=== PATIENT | male | born 1940 | race Caucasian/White ===

== ENCOUNTER 2018-07-19 10:44 | Inpatient (IN) | payer SELFPAY ==
[~2018-07-19] VITALS: Ht 188 cm; Wt 84.7 kg
--- NOTE | 2018-07-19 11:03 | NUR ---
BIB EMS FROM [facility]. WITNESS +SYNCOPAL EPISODE THIS MORNING. PT WAS CAUGHT BY STAFF AND LOWERED TO FLOOR. PARTS EXPEDITER RPTS PALPATED RADIAL PULSE OF 29 IMPROVED TO HIGH 60'S PT WAS UNARROUSABLE INITIALLY BUT BECAME MORE RESPONSIVE AFTER A "FEW MINUTES" PT NOW PRESENTS AT BASELINE PER STAFF AT BEDSIDE. HX: DEMENTIA. PT IN CUSTODY WITH OFFICERS AT BEDSIDE X 2. PT IS CALM AND COOPERATIVE. MONITORS PLACED AND EKG COMPLETED. ORTHO STATICS COMPLETED BY EMS SUPINE 90 105/70, STANDING 84, 98/59
--- NOTE | 2018-07-19 11:07 | NUR ---
DR LARES AT BEDSIDE, SBAR RPT PROVIDED. ASSESSMENT REVIEWED AND QUESTIONS ANSWERED.
[2018-07-19] MEDS ORDERED: SODIUM CHLORIDE FLUSH 10ML SYR IVF ONE (11:30)
[2018-07-19 11:40] LABS: BASOPHILS # (AUTO) 0.02 x10^3/uL (0-0.1); BASOPHILS % (AUTO) 0 % (0-1); EOSINOPHILS # (AUTO) 0.02 x10^3/uL (0-0.4); EOSINOPHILS % (AUTO) 0 % (1-7); LYMPHOCYTES # (AUTO) 0.73 x10^3/uL (1-3.4); LYMPHOCYTES % (AUTO) 18 % (22-44); MD NO; MEAN CORPUSCULAR HEMOGLOBIN 30.5 pg (27.5-34.5); MEAN CORPUSCULAR HGB CONC 32.3 g/dL (33.2-36.2); MEAN CORPUSCULAR VOLUME 94.5 fL (81-97); MEAN PLATELET VOLUME 7.3 fL (7.4-10.4); MONOCYTES # (AUTO) 0.36 x10^3/uL (0.2-0.8); MONOCYTES % (AUTO) 9 % (2-9); NEUTROPHILS # (AUTO) 3.02 x10^3/uL (1.8-6.8); NEUTROPHILS % (AUTO) 73 % (42-75); PLATELET COUNT 277 x10^3/uL (130-400); RED CELL DISTRIBUTION WIDTH 17.1 % (9.4-14.8)
[2018-07-19 11:51] LABS: INTERNATIONAL NORMALIZED RATIO 1.07 (0.93-1.1); PROTHROMBIN TIME 11.2 Seconds (9.6-11.5)
[2018-07-19 11:57] LABS: ALBUMIN 3.2 g/dL (3.4-5.0); ANION GAP 6 mmol/L (5-15); CALCIUM 8.7 mg/dL (8.5-10.1); CHLORIDE 105 mmol/L (98-107)
[2018-07-19 12:03] LABS: ALANINE AMINOTRANSFERASE 25 U/L (12-78); ALKALINE PHOSPHATASE 87 U/L (45-117); BILIRUBIN,TOTAL 0.4 mg/dL (0.2-1.0); CREATININE 1.03 mg/dL (0.7-1.3); TOTAL PROTEIN 6.8 g/dL (6.4-8.2); TROPONIN I < 0.015 ng/mL (0.000-0.045)
[2018-07-19] MEDS ORDERED: CHLO10TA2 PO ×2 (12:08→12:10)
[2018-07-19] MEDS ORDERED: ASPI-647 PO (12:08)
[2018-07-19] MEDS ORDERED: CHLO50TA6 PO (12:09)
[2018-07-19] MEDS ORDERED: POLY17PO5 PO (12:09)
[2018-07-19] MEDS ORDERED: TAMS-11 PO (12:09)
[2018-07-19] MEDS ORDERED: LOSA50TA14 PO (12:09)
--- NOTE | 2018-07-19 12:28 | NUR ---
BEDSIDE REPORT FROM GABO VICTORIA. ASSUMED CARE OF PATIENT AT THIS TIME.
--- NOTE | 2018-07-19 13:04 | NUR ---
PATIENT ASSISTED TO BATHROOM WITH STEADY GAIT TO BATHROOM BY [facility] STAFF, PATIENT BACK TO BED.
[2018-07-19] MEDS ORDERED: OMNIPAQUE 350 MG/ML, 100ML BOTTLE ONE (13:05)
--- NOTE | 2018-07-19 13:08 | NUR ---
ADMIT ORDER IN, AWAITING BED ASSIGNMENT. [facility] STAFF AT BEDSIDE.
--- NOTE | 2018-07-19 13:10 | NUR ---
VS UPDATED IN CHART, ADMIT MD AT BEDSIDE.
[2018-07-19] MEDS ORDERED: ONDANSETRON 2MG/ML, 2ML IVPush PRN (13:30)
[2018-07-19] MEDS ORDERED: HALOPERIDOL 1 MG TABLET PO PRN (13:30)
[2018-07-19] MEDS ORDERED: HALOPERIDOL 5 MG/ML IVPush PRN (13:30)
[2018-07-19] MEDS ORDERED: hydrALAzine 20 MG/ML, 1ML IVPush PRN (13:30)
[2018-07-19] MEDS ORDERED: ACETAMINOPHEN 325 MG TABLET PO PRN (13:30)
[2018-07-19] MEDS ORDERED: KETOROLAC 60 MG/2 ML IV PRN (13:30)
[2018-07-19] MEDS ORDERED: NITROGLYCERIN 0.4 MG BOTTLE (25 TABS) SL PRN (13:30)
[2018-07-19] MEDS ORDERED: NITROGLYCERIN 0.4 MG/SPRAY SL PRN (13:30)
--- NOTE | 2018-07-19 14:50 | NUR ---
REPORT TO GABO GASPAR.
--- NOTE | 2018-07-19 15:01 | NUR ---
PATIENT TRANSFERRED/ADMITTED TO HOSP BED UPSTAIRS, NEW ORDERS FOR ABX. REPORT TO GABO GASPAR TO CHECK WITH [facility] REGARDING NEED FOR BLOOD CULTURES PRIOR TO ABX ADMINISTRATION. HUBERT TO FOLLOW UP.
[2018-07-19] MEDS: ENOXAPARIN 40 MG/0.4 ML SQ SCH (16:00)
[2018-07-19] MEDS: CEFTRIAXONE PMX 1GM/50ML 50 ML IV SCH (16:00)
[2018-07-19 16:02] VITALS: BP 151/83
[2018-07-19] MEDS: AZITHROMYCIN 500 MG in SODIUM CHLORIDE 0.9% 250 ML IV SCH (17:30)
[2018-07-19 19:01] LABS: TROPONIN I < 0.015 ng/mL (0.000-0.045)
[2018-07-19 20:00] VITALS: BP 116/59
[2018-07-20 01:00] VITALS: BP 141/59
[2018-07-20 01:13] LABS: TROPONIN I < 0.015 ng/mL (0.000-0.045)
[2018-07-20] MEDS: ASPIRIN 325 MG TABLET EC PO SCH (05:42)
[2018-07-20 05:45] LABS: BASOPHILS # (AUTO) 0.02 x10^3/uL (0-0.1); BASOPHILS % (AUTO) 0 % (0-1); EOSINOPHILS # (AUTO) 0.03 x10^3/uL (0-0.4); EOSINOPHILS % (AUTO) 1 % (1-7); LYMPHOCYTES # (AUTO) 1.31 x10^3/uL (1-3.4); LYMPHOCYTES % (AUTO) 25 % (22-44); MD NO; MEAN CORPUSCULAR HGB CONC 32.4 g/dL (33.2-36.2); MEAN CORPUSCULAR VOLUME 92.8 fL (81-97); MEAN PLATELET VOLUME 7.1 fL (7.4-10.4); MONOCYTES # (AUTO) 0.46 x10^3/uL (0.2-0.8); MONOCYTES % (AUTO) 9 % (2-9); NEUTROPHILS % (AUTO) 65 % (42-75); PLATELET COUNT 278 x10^3/uL (130-400); RED BLOOD COUNT 3.98 x10^6/uL (4.38-5.82); RED CELL DISTRIBUTION WIDTH 17.9 % (9.4-14.8)
[2018-07-20 05:53] LABS: ANION GAP 4 mmol/L (5-15); CALCIUM 8.9 mg/dL (8.5-10.1); CHLORIDE 107 mmol/L (98-107); CREATININE 0.97 mg/dL (0.7-1.3)
[2018-07-20 06:03] LABS: THYROID STIMULATING HORMONE 0.713 mIU/L (0.358-3.740)
[2018-07-20 08:12] VITALS: BP 131/58
[2018-07-20] MEDS: POLYETHYLENE GLYCOL 17 GM PACKET PO SCH (09:00)
[2018-07-20] MEDS: LOSARTAN 50MG TABLET PO SCH (10:28)
[2018-07-20] MEDS: TAMSULOSIN 0.4 MG CAP.ER.24H PO SCH (10:28)
[2018-07-20] MEDS: chlorPROMAZINE 10MG TABLET PO SCH ×2 (10:28→14:06)
[2018-07-20 15:11] VITALS: BP 133/65
[2018-07-20] MEDS: ENOXAPARIN 40 MG/0.4 ML SQ SCH (16:32)
[2018-07-20] MEDS: CEFTRIAXONE PMX 1GM/50ML 50 ML IV SCH (16:33)
[2018-07-20] MEDS: AZITHROMYCIN 500 MG in SODIUM CHLORIDE 0.9% 250 ML IV SCH (17:41)
[2018-07-20 19:43] VITALS: BP 142/72
[2018-07-21 02:24] VITALS: BP 135/78
[2018-07-21] MEDS: ASPIRIN 325 MG TABLET EC PO SCH (05:56)
[2018-07-21 07:11] VITALS: BP 155/82
[2018-07-21] MEDS: POLYETHYLENE GLYCOL 17 GM PACKET PO SCH (08:42)
[2018-07-21] MEDS: chlorPROMAZINE 10MG TABLET PO SCH ×2 (08:42→14:00)
[2018-07-21] MEDS: TAMSULOSIN 0.4 MG CAP.ER.24H PO SCH (08:42)
[2018-07-21] MEDS: LOSARTAN 50MG TABLET PO SCH (08:42)
[2018-07-21] MEDS ORDERED: AZIT500T5 PO (09:52)
[2018-07-21] MEDS ORDERED: CEFD300C37 PO (09:52)
[2018-07-21] MEDS ORDERED: CHLO25TA4 PO (09:52)
[2018-07-21 12:46] VITALS: BP 146/75
== END 2018-07-21 16:25 | disposition home or self-care (01) | DRG 310 ==
LOC: ED 12:55 → EDIP 12:56 → ED 13:41 → 4WST 15:56
PROVIDERS: ADMIT Hospitalist; ATTEND Hospitalist
DX: R00.1 Bradycardia, unspecified (principal); F03.90 Unspecified dementia, unspecified severity, without behavioral disturbance, psychotic disturbance, mood disturbance, and anxiety; I10 Essential (primary) hypertension; J20.9 Acute bronchitis, unspecified; N40.0 Benign prostatic hyperplasia without lower urinary tract symptoms; R09.02 Hypoxemia; Z78.1 Physical restraint status
CPT/HCPCS: 36415; 71045; 71275; 80048; 80053; 83880; 84145; 84443; 84484; 85025; 85610; 85730; 93005; 93306; 99285; G0378; J0456; J0696; J1650; Q9967; J7050

== ENCOUNTER 2018-08-28 16:17 | Outpatient (CLI) | payer SELFPAY ==
[~2018-08-28 16:17] MED LIST: ASPI-647 PO; AZIT500T5 PO; CEFD300C37 PO; CHLO10TA2 PO; CHLO25TA4 PO; CHLO50TA6 PO; LOSA50TA14 PO; POLY17PO5 PO; TAMS-11 PO
== END 2018-08-28 23:59 | disposition home or self-care (01) ==
LOC: RAD 16:17
PROVIDERS: ATTEND Radiology Diagnostic Radiology
DX: J18.9 Pneumonia, unspecified organism (principal); E87.1 Hypo-osmolality and hyponatremia
CPT/HCPCS: 71046